=== PATIENT | female | born 1985 | race Caucasian/White ===

== ENCOUNTER 2016-10-22 17:37 | Emergency (ER) | payer SELFPAY ==
[2016-10-22 17:38] VITALS: BMI 47.1
[2016-10-22 17:49] VITALS: PULSE 87; TEMP 98.6
[2016-10-22 17:52] VITALS: BP 163/102
--- NOTE | 2016-10-22 17:55 | EDPRACDOC ---
- General Information Chief Complaint: Foot Pain Stated Complaint: LEFT FOOT PAIN Time Seen by Provider: 10/22/16 17:51 Information Source: Patient Mode of Arrival: Car Home Medications: Home Medications Hydrochlorothiazide 25 mg PO QAM #30 tablet 03/09/16 Ibuprofen 800 mg PO TID PRN #30 tablet 10/22/16 Tramadol HCl [Ultram] 50 mg PO Q6H PRN #15 tab 10/22/16 Allergies/Adverse Reactions: Allergies Allergy/AdvReac Type Severity Reaction Status Date / Time No Known Allergies Allergy Verified 03/09/16 11:28 - History of Present Illness Onset: one week HPI: Pt c/o L foot pain x 1 week. Denies injury, numbness, ankle pain. Pt states pain worse with wt bearing. Foot Problem Location: Reports: Left, Lateral, Mid Mechanism: Reports: Unknown Circumstances: Reports: Spontaneous Able to Bear Weight: Limited Pain Severity: Reports: Moderate Associated Signs & Symptoms: Reports: None ED Past Medical History - History Reviewed Yes Nurses notes reviewed and agree except as marked - Patient Medical History Cardiac History: Reports: Hypertension Psychological History: Denies: Depression Systemic History: Denies: Cancer - Social Medical History Smoking Status: Heavy tobacco smoker (5 or more cigarettes/day or daily pipe/ cigar) ETOH: None Substance Abuse: None EDM Review of Systems - Review of Systems Constitutional: No Symptoms Reported. negative: Fever, Chills, Weakness, Fatigue, Loss of Appetite Neurological: No Symptoms Reported. negative: Headache, Dizziness, Seizure, Numbness, Weakness, Speech Difficulty, Gait Difficulty Musculoskeletal: Foot Integumentary: No Symptoms Reported. negative: Itching, Rash, Bruising, Wound Allergic/Immunologic: No Symptoms Reported. negative: Hives, Itching Hematologic: No Symptoms Reported. negative: Lymphadenopathy, Easy Bruising, Easy Bleeding Psychiatric: No Symptoms Reported. negative: Anxiety, Depression, Hallucinations, Insomnia, Suicidal - Physical Exam Constitutional: Alert Oriented to: Time, Person, Place Last recorded Vital Signs: Last Vital Signs Temp 98.6 F 10/22/16 17:47 Pulse 87 10/22/16 17:47 Resp 20 10/22/16 17:47 BP 163/102 H 10/22/16 17:49 Pulse Ox 95 10/22/16 17:47 Oxygen Pulse Oxygen Saturation 95 O2 Device Room Air Oxygen Flow Rate Fraction of Inspired Oxygen ( FIO2) - HEENT Head: Normal ( normocephalic) - Respiratory/Cardiovascular Respiratory: Normal - CTA (BBS clear to auscultation without adventitious sounds ) Cardiovascular: Normal (RRR without murmur, gallop or rub) - Musculoskeletal Extremities: Normal (Normal tone, Pulses 2+ No cyanosis or edema, FROM) - Integumentary Skin: Normal, Warm, Dry Lymphatics: Normal (no adenopathy) - Neurologic Memory Impaired: Normal Motor Function: Normal (Normal tone, Pulses 2+ No cyanosis or edema, FROM) Mood Description: Normal Perception: Normal ED Foot Problem Phys Exam - Musculoskeletal Foot: Mild Tenderness Ankle: Normal Achilles Tendon: Normal Nail: Normal Nailbed: Normal Soft Tissue: Normal Digit: Normal Digit Strength: Normal Distal Function/Circulation: Normal - Integumentary Skin: Normal Lymphatics: Normal - Differential Diagnosis Contusion, Metatarsal Fracture, Sprain, Other (plantar fasciitis) - Diagnostic Imaging Foot Image interpreted by: Radiologist Diagnostic Imaging Comments: IMPRESSION: Negative. Decision Time to Discharge: 18:41 - Departure Disposition: Home Condition: Good Final Diagnosis: Sprain of left foot Qualifiers: Encounter type: initial encounter Qualified Code(s): S93.602A - Unspecified sprain of left foot, initial encounter Instructions: RICE: Routine Care for Injuries, Foot Sprain (ED) Education/Counseling Given To: Patient Education/Counseling Given Regarding: Diagnosis, Treatment, Follow Up Referrals: None,No Provider [Primary Care Provider] - One Week Irving Hernandez DO [Staff Physician] - One Week Prescriptions: Ibuprofen 800 mg PO TID PRN #30 tablet PRN Reason: Pain Tramadol HCl [Ultram] 50 mg PO Q6H PRN #15 tab PRN Reason: Pain Additional Instructions: Return for worse or different symptoms.
--- NOTE | 2016-10-22 18:40 | DIRPT ---
CLINICAL DATA: Left lateral foot pain. EXAM: LEFT FOOT - COMPLETE 3+ VIEW COMPARISON: None. FINDINGS: There is no evidence of fracture or dislocation. There is no evidence of arthropathy or other focal bone abnormality. Soft tissues are unremarkable. IMPRESSION: Negative. Electronically Signed By: Charlie Condon M.D. On: 10/22/2016 18:38
== END 2016-10-22 19:05 | disposition home or self-care (01) ==
LOC: EDMC 17:37
DX: S93.602A Unspecified sprain of left foot, initial encounter (principal); X58.XXXA Exposure to other specified factors, initial encounter; I10 Essential (primary) hypertension; F17.200 Nicotine dependence, unspecified, uncomplicated; Z79.899 Other long term (current) drug therapy
CPT/HCPCS: 99283